=== PATIENT | male | born 1940 | race Caucasian/White ===

== ENCOUNTER → 2018-02-23 | Outpatient (CLI) | payer OTHER ==
[~2018-02-23] MED LIST: OPTIRAY 320 IV PRN
--- NOTE | 2018-02-23 13:48 | DIAGNOSTIC IMAGING REPORT ---
ABD/PELVIS COMBO CLINICAL HISTORY: 77 years-old Male presenting with R31.0 Gross [id number] [facility]#[id number] VALID 01/20/18. TECHNIQUE: Multidetector CT of the abdomen and pelvis was performed before and after the administration of intravenous contrast. IV contrast: Optiray 320. A dose lowering technique was used consistent with the principles of ALARA (as low as reasonably achievable). COMPARISON: None. CT DOSE (mGy.cm): The estimated cumulative dose is 2196.28 mGycm. FINDINGS: Adolescent Counselor topogram: Unremarkable. Lung bases: Minimal basilar opacities, likely atelectasis. Normal heart size. Coronary artery and aortic valve calcification. No pericardial or pleural effusion. Liver: Normal morphology. Density consistent with hepatic steatosis. No focal lesion. Patent hepatic vasculature. Biliary: No intrahepatic or extrahepatic biliary ductal dilatation. Gallbladder surgically absent. Pancreas: Mild parenchymal atrophy. Spleen: Normal. Adrenal glands: Normal. Kidneys and ureters: No nephrolithiasis. No hydronephrosis. Exophytic hypodensity arising from the interpolar region of the left kidney compatible with simple cyst. No suspicious solid renal mass. No filling defect within the renal collecting systems. Ureters normal. Bladder: Allowing for incomplete bladder distention, the bladder is grossly normal without suspicious polypoid thickening. Pelvic organs: Prostate enlargement likely secondary to benign prostatic hyperplasia. A transurethral resection of the prostate defect may be present. Bowel: Apparent wall thickening of the hepatic flexure likely due to underdistention. No bowel obstruction. The appendix is normal. Peritoneal cavity: No free fluid or intraperitoneal gas. Lymph nodes: No enlarged lymph nodes in the abdomen or pelvis. Vasculature: Atherosclerosis of the abdominal aorta. Minimal ectasia of the infrarenal portion IVC patent. Abdominal wall: Normal. Musculoskeletal: Degenerative changes of the spine. IMPRESSION: 1. No solid renal mass or urothelial neoplasm is evident. No nephrolithiasis or hydronephrosis. 2. Prostatomegaly. 3. Hepatic steatosis. Electronically signed by: Darrel Schwab M.D. 02/23/2018 1:46 PM Dictated Date/Time: 02/23/2018 1:07 PM
== END | disposition home or self-care (01) ==
LOC: C.CTS 10:27
PROVIDERS: ATTEND Urology
DX: R31.0 Gross hematuria (principal); R32 Unspecified urinary incontinence; N40.0 Benign prostatic hyperplasia without lower urinary tract symptoms; K76.0 Fatty (change of) liver, not elsewhere classified